=== PATIENT | male | born 1975 | race Caucasian/White ===

== ENCOUNTER → 2025-04-30 | Outpatient (CLI) | payer BC ==
--- NOTE | 2025-04-30 11:33 | XR ---
EXAMINATION TYPE: XR cervical spine comp DATE OF EXAM: 04/30/2025 11:13 AM INDICATION: Patient age:Male; 49 years old; Reason for study: M54.2 cervical pain; PHH, pain COMPARISON: None TECHNIQUE: The cervical spine was imaged in 4 projections. Frontal, lateral, odontoid and bilateral o blique. FINDINGS: The osseous structures show normal alignment without evidence of an acute fracture of the cervical sp ine. Postsurgical changes from ACDF C5-T1. There are nondisplaced fractures through the C5 pedicular screws. Hardware is in appropriate alignment. The remaining disc spaces are maintained without radiog raphic evidence for significant disc disease. Pedicles are intact. Soft tissues are within normal li mits. The odontoid appears intact. IMPRESSION: 1. No fracture or dislocation. 2. Postsurgical changes from ACDF C5-T1. There is nondisplaced hardware fracture involving the bilate ral C5 pedicular screws. [facility], , 04/30/2025 11:31 AM
--- NOTE | 2025-04-30 11:36 | XR ---
EXAMINATION TYPE: XR thoracic spine 2V DATE OF EXAM: 04/30/2025 11:13 AM INDICATION: Patient age:Male; 49 years old; Reason for study: M54.6 thoracic pain; PHH. pain COMPARISON: Cervical spine radiograph the same day. TECHNIQUE: Frontal, lateral, swimmer's views of the thoracic spine were obtained. FINDINGS: No evidence of any acute osseous pathology. No evidence of loss of vertebral body height i s seen. There is normal alignment of the lumbar vertebral bodies. Increased thoracic kyphosis. Multil evel disc space narrowing with endplate sclerosis. The visualized lungs are clear. IMPRESSION: 1. No acute process. 2. Mild multilevel degenerative disc disease of the thoracic spine with increased thoracic kyphosis. 3. Please refer to dedicated cervical spine radiograph of the same day for findings. [facility], , 04/30/2025 11:34 AM
== END | disposition home or self-care (01) ==
LOC: RADXRMAIN 10:35
PROVIDERS: ATTEND Chiropractor
DX: M50.13 Cervical disc disorder with radiculopathy, cervicothoracic region (principal); M40.294 Other kyphosis, thoracic region; Z98.1 Arthrodesis status
CPT/HCPCS: 72050; 72070